=== PATIENT | male | born 1950 | race Caucasian/White ===

== ENCOUNTER 2019-09-22 16:41 | Emergency (ER) | payer MEDICARE, BC, SELFPAY ==
--- NOTE | ~2019-09-22 | XR_ITS ---
EXAMINATION: XR humerus RT EXAM DATE: 09/22/2019 17:41 INDICATION: Initial encounter following injury, with pain of right arm TECHNIQUE: 2 orthogonal projections right arm. There is no prior study for comparison. FINDINGS: There is acute closed posttraumatic oblique fracture through the midshaft of the right hum erus with near complete shaft width of displacement, and mild angulation. Associated soft tissue swel ling. No other acute findings. There is mild to moderate right shoulder primary osteoarthritis. IMPRESSION: Right humeral midshaft fracture with displacement, angulation. Reviewed, dictated and finalized at location A.
[2019-09-22 16:42] VITALS: BP 165/61; PULSE 63; RESP 18; TEMP 36.2; O2SAT 96
--- NOTE | 2019-09-22 17:06 | ED.UPPEXIN ---
HPI - Extremity Injury (Upper) General Chief Complaint: Extremity Injury, Upper Stated Complaint: R ARM INJURY - FALL Time Seen by Provider: 09/22/19 16:51 Source: patient Mode of arrival: ambulatory Limitations: no limitations History of Present Illness HPI narrative: Patient is a 68-year-old male who presents to emergency department for evaluation of injuries related to a ground-level fall noting that he had a mechanical trip fell forward injuring the right elbow sustaining an abrasion to the left knee. Patient notes aching pain worse with activity and movement involving the right elbow denies radicular symptoms or paresthesias. Patient notes minimal pain to the left knee. Patient denies other injuries or complaints and presents per private vehicle in no distress Related Data Home Medications Medication Instructions Recorded Confirmed amlodipine 5 mg tablet 5 mg PO DAILY 08/03/19 aspirin 81 mg tablet,delayed 81 mg PO DAILY 08/03/19 release bupropion HCl 150 mg 24 hr tablet, 150 mg PO QAM 08/03/19 extended release cholecalciferol (vitamin D3) 25 25 mcg PO DAILY 08/03/19 mcg (1,000 unit) capsule citalopram 40 mg tablet 20 mg PO DAILY 08/03/19 fenofibrate 160 mg tablet 160 mg PO DAILY 08/03/19 furosemide 20 mg tablet 20 mg PO QAM 08/03/19 gabapentin 800 mg tablet 800 mg PO TID 08/03/19 multivitamin 1 tablet PO DAILY 08/03/19 pravastatin 80 mg tablet 80 mg PO DAILY 08/03/19 telmisartan 80 mg tablet 80 mg PO DAILY 08/03/19 triamcinolone acetonide 0.1 % 1 applic TOPICAL BID 08/03/19 topical cream metformin 1,000 mg tablet 1,000 mg PO BID tablet 08/11/19 Allergies Allergy/AdvReac Type Severity Reaction Status Date / Time ROUNDS BEANS Allergy Intermediate HIVES;THROAT Uncoded 02/24/19 07:51 SWELLING Review of Systems Review of Systems: All systems reviewed & are unremarkable except as noted in HPI and below PMFSH Past Medical History Medical History Anxiety Arthritis Depression Diabetes Gall stone Heart murmur Hyperlipidemia Hypertension Poor circulation of extremity Surgical History Surgical History History of cholecystectomy History of neck surgery Status post surgical removal of malignant neoplasm of skin Family History Family History (Updated 08/03/19 @ 10:49 by Janett Donahue [facility]) Mother Arthritis Diabetes mellitus Father Bladder cancer Social History Social History Smoking packs per day: 0.5 Smoking cigarettes per day: 10.0 Years smoked: 2 Smoking pack-years: 1.00 Smoking status: Former smoker Tobacco type: cigarettes Second hand tobacco smoke exposure: No Smoking end date: 04/29/70 Gender identity (if verbalized by the patient): Male Exam Narrative: Exam Narrative: GENERAL: Well-appearing, well-nourished, and in no acute distress. HEAD: Normocephalic, atraumatic. EYES: PERRLA and EOMI. ENT: Nares clear, no rhinorrhea or epistaxis. Mucous membranes moist. CHEST: Clear to auscultation. No respiratory distress. No wheezes rales or rhonchi HEART: Regular rate and rhythm. No murmur heard. Normal peripheral pulses. EXTREMITIES: Tenderness involving the right elbow joint no deformities noted. Abrasion to the left knee SKIN: Warm, dry, no rash. NEURO: No focal deficits. Alert and oriented x3. Cranial nerves II through XII grossly intact. Neurovascularly intact. Normal speech and gait PSYCH: Normal mood and affect. Course Consultations Consultation #1: Discussed case with orthopedic surgeon on-call who recommends placing the patient in a coaptation splint with immobilizer and will see in clinic in the following day Date: 09/22/19 Time: 18:16 Vital Signs Vital signs: Vital Signs Temperature 97.2 F L 09/22/19 16:42 Pulse Rate 63 09/22/19 16:42 Respiratory Rate
[2019-09-22] MEDS: ACETAMINOPHEN 325 MG TABLET 650 MG PO (17:10)
[2019-09-22] MEDS: MORPHINE SULFATE 4 MG/ML INJ IM (18:19)
[2019-09-22 19:01] VITALS: BP 155/70; PULSE 70; RESP 16; O2SAT 99
== END 2019-09-22 19:04 | disposition home or self-care (01) ==
PROVIDERS: Emergency Provider Emergency Medicine; PCP Physician Assistant
DX: S42.301A Unspecified fracture of shaft of humerus, right arm, initial encounter for closed fracture (principal); F41.9 Anxiety disorder, unspecified; M19.90 Unspecified osteoarthritis, unspecified site; F32.9 Major depressive disorder, single episode, unspecified; E11.9 Type 2 diabetes mellitus without complications; E78.5 Hyperlipidemia, unspecified; I10 Essential (primary) hypertension; W01.0XXA Fall on same level from slipping, tripping and stumbling without subsequent striking against object, initial encounter; Z79.84 Long term (current) use of oral hypoglycemic drugs
CPT/HCPCS: 29105; 73060; 96372; 99284; A9270; J2270

== ENCOUNTER 2019-10-01 19:32 | Emergency (ER) | payer MEDICARE, BC, SELFPAY ==
--- NOTE | ~2019-10-01 | XR_ITS ---
EXAMINATION: XR humerus RT DATE: 10/01/2019 20:08 INDICATION: Right humeral fracture post fall TECHNIQUE: Internal and axillary rotated views of the right humerus were obtained. COMPARISON: 09/22/2019 FINDINGS: Again seen is a mildly comminuted mid diaphyseal spiral fracture of the right humerus. There is and o ne shaft width posterior displacement, and up to 15 degrees anteromedial angulation. 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 IMPRESSION: 1. Displaced and angulated mid diaphyseal fracture of the right humerus. Reviewed, dictated and finalized at location A.
--- NOTE | ~2019-10-01 | XR_ITS ---
EXAMINATION: XR chest 1V portable DATE: 10/01/2019 20:08 INDICATION: Aortic stenosis. TECHNIQUE: frontal view of the chest was obtained. COMPARISON: None FINDINGS: The left costophrenic angle is excluded from the [id number]. Elevation of the right hemidiaphragm. Linear discoid atelectasis/scarring in the right lower lung zone. Remainder of the visualized lungs are clear. No pulmonary edema, pleural effusion or pneumothorax. Heart size is normal. Plate and scre w fixation for lower cervical anterior spinal fusion. IMPRESSION: 1. Elevation of the right hemidiaphragm with right basilar atelectasis/scarring. Reviewed, dictated and finalized at location A. IMPRESSION: 1. Elevation of the right hemidiaphragm with right basilar atelectasis/scarring .
[2019-10-01 19:31] VITALS: BP 179/91; PULSE 72; RESP 17; TEMP 36.9; O2SAT 97
--- NOTE | 2019-10-01 19:43 | ED.FALL ---
HPI - Fall General Chief Complaint: Fall Stated Complaint: Fall Time Seen by Provider: 10/01/19 19:34 Source: RN notes reviewed History of Present Illness HPI Narrative: Patient presents emergency department from home via EMS for fall. Patient was seen on 09/22/2019 for a fall in which she had a right proximal humerus fracture. Patient states he was discharged that time follow-up with Dr. Mcgregor where he had a splint placed. Patient states that he normally walks with a cane at home but is having a more difficult time getting around his house he states that today he fell and was unable to get up states that when he fell he landed on his right arm causing pain in his right arm. He states that his friend came her to try to get him up and unable to get him up and brought him to the emergency department. He states he believes he needs more than his cane at this time. He denies striking his head or loss of consciousness he denies any other injury from the fall denies any recent illness Related Data Home Medications Medication Instructions Recorded Confirmed amlodipine 5 mg tablet 5 mg PO DAILY 08/03/19 aspirin 81 mg tablet,delayed 81 mg PO DAILY 08/03/19 release bupropion HCl 150 mg 24 hr tablet, 150 mg PO QAM 08/03/19 extended release cholecalciferol (vitamin D3) 25 25 mcg PO DAILY 08/03/19 mcg (1,000 unit) capsule citalopram 40 mg tablet 20 mg PO DAILY 08/03/19 fenofibrate 160 mg tablet 160 mg PO DAILY 08/03/19 furosemide 20 mg tablet 20 mg PO QAM 08/03/19 gabapentin 800 mg tablet 800 mg PO TID 08/03/19 multivitamin 1 tablet PO DAILY 08/03/19 pravastatin 80 mg tablet 80 mg PO DAILY 08/03/19 telmisartan 80 mg tablet 80 mg PO DAILY 08/03/19 triamcinolone acetonide 0.1 % 1 applic TOPICAL BID 08/03/19 topical cream metformin 1,000 mg tablet 1,000 mg PO BID tablet 08/11/19 Allergies Allergy/AdvReac Type Severity Reaction Status Date / Time ROUNDS BEANS Allergy Intermediate HIVES;THROAT Uncoded 02/24/19 07:51 SWELLING Review of Systems Review of Systems: Narrative: Gen.: Denies fevers or chills Eyes: Denies eye pain or visual change ENT: Denies congestion Respiratory: Denies shortness of breath or cough CV: Denies chest pain or palpitations GI: Denies abdominal pain nausea, emesis or diarrhea Musculoskeletal: See HPI Neuro: Denies numbness, tingling, weakness or focal weakness Skin: Denies rash Except as documented, all other systems reviewed and negative [facility] Past Medical History Medical History Anxiety Arthritis Depression Diabetes Gall stone Heart murmur Hyperlipidemia Hypertension Poor circulation of extremity Family History Family History (Updated 08/03/19 @ 10:49 by Janett Donahue [facility]) Mother Arthritis Diabetes mellitus Father Bladder cancer Social History Social History Smoking packs per day: 0.5 Smoking cigarettes per day: 10.0 Years smoked: 2 Smoking pack-years: 1.00 Smoking status: Former smoker Tobacco type: cigarettes Second hand tobacco smoke exposure: No Smoking end date: 04/29/70 Gender identity (if verbalized by the patient): Male Exam Narrative: Exam Narrative: APPEARANCE: No acute distress, nontoxic, resting in bed EYES: PERRL HEENT: Normocephalic, atraumatic, OMM Neck: Supple, nontender to palpation RESPIRATORY: No respiratory distress Clear to auscultation bilaterally with no rhonchi wheezing or rales. CARDIOVASCULAR: Regular rate and rhythm without murmurs rubs or gallops. ABDOMINAL: Soft, nontender, nondistended, no rebound or guarding MUSCULOSKELETAl: No clubbing, cyanosis the right is diffusely tender to palpation with swelling and ecchymosis throughout arm radial pulse 2+ neurovascular intact no tenderness of the right elbow or wrist overlying erythema of the right upper extremity as well as the right lateral chest wa
[2019-10-01 20:15] LABS: Basophils Percent Auto 0.2 % (0.2-1.2); Eosinophils Absolute Auto 0.1 K/mm3 (0-0.3); Eosinophils Percent Auto 0.8 % (0-4.4); Hematocrit 32.9 % (42.0-52.0); Hemoglobin 10.7 g/dL (14.0-18.0); Immature Granulocyte Absolute 0.12 K/mm3 (0.00-0.031); Immature Granulocyte Percent A 0.9 % (0-0.5); Lymphocytes Absolute Auto 1.38 K/mm3 (0.9-3.2); Lymphocytes Percent Auto 10.6 % (18.3-44.2); Mean Corpuscular HGB Conc 32.5 g/dl (32-36); Mean Corpuscular Hemoglobin 27.9 pg (26-34); Mean Corpuscular Volume 85.9 fl (80-100); Monocytes Absolute Auto 0.9 K/mm3 (0.1-0.6); Monocytes Percent Auto 7.2 % (2.6-8.5); Neutrophils Absolute Auto 10.4 K/mm3 (1.3-6.7); Neutrophils Percent Auto 80.3 % (45.5-73.1); Platelet Count Result 269 k/mm3 (150-375); Red Blood Count 3.83 M/mm3 (4.6-6.20); Red Cell Distribution Width 14.2 % (11.5-14.5)
[2019-10-01 20:30] LABS: INR 1.1; Prothrombin Time 13.6 Seconds (11.1-14.7)
[2019-10-01 20:31] VITALS: BP 126/58; PULSE 70; RESP 18; O2SAT 100
[2019-10-01 20:32] LABS: Partial Thromboplastin Time 32.3 SECONDS (22.3-36.8)
[2019-10-01 20:41] LABS: Blood Urea Nitrogen 20 mg/dL (9-20); Calcium 8.6 mg/dL (8.4-10.2); Carbon Dioxide 26 mmol/L (22-30); Chloride 100 mmol/L (98-107); Estimated Glomerular Filt Rate 43; Glucose 159 mg/dL (75-110); Potassium 4.1 mmol/L (3.4-5.0); Sodium 133 mmol/L (137-145)
[2019-10-01 20:58] VITALS: BP 139/66; PULSE 72; RESP 19; O2SAT 97
[2019-10-01 22:02] VITALS: BP 141/66; PULSE 74; RESP 19; O2SAT 98
[2019-10-01 22:37] VITALS: BP 142/66; PULSE 74; RESP 19; TEMP 37.2; O2SAT 100
== END 2019-10-01 22:39 | disposition short-term general hospital (02) ==
PROVIDERS: Emergency Provider Emergency Medicine; PCP Physician Assistant
DX: S42.341A Displaced spiral fracture of shaft of humerus, right arm, initial encounter for closed fracture (principal); E78.5 Hyperlipidemia, unspecified; I10 Essential (primary) hypertension; E11.9 Type 2 diabetes mellitus without complications; M19.90 Unspecified osteoarthritis, unspecified site; F32.9 Major depressive disorder, single episode, unspecified; F41.9 Anxiety disorder, unspecified; Z87.891 Personal history of nicotine dependence; Z79.82 Long term (current) use of aspirin; Z79.84 Long term (current) use of oral hypoglycemic drugs; W19.XXXA Unspecified fall, initial encounter
CPT/HCPCS: 36415; 71045; 73060; 80048; 85025; 85610; 85730; 99285